=== PATIENT | female | born 1985 | race Caucasian/White ===

== ENCOUNTER 2021-06-02 14:00 | Emergency (ER) | payer MEDICAID ==
[~2021-06-02] VITALS: Ht 167.6 cm; Wt 59.0 kg
--- NOTE | 2021-06-02 14:35 | NUR ---
DR JOYA AT BEDSIDE FOR MSE.
[2021-06-02] MEDS ORDERED: IBUPROFEN 800 MG TABLET PO ONE (14:45)
[2021-06-02] MEDS ORDERED: IBUPROFEN 800 MG TABLET ONE (15:12)
[2021-06-02] MEDS ORDERED: OXYC-128 PO (15:24)
--- NOTE | 2021-06-02 15:46 | NUR ---
Patient discharged to home in stable condition. Written and verbal after care instructions given. Patient verbalizes understanding of instructions. Stressed follow up or return to ER for worsening s/s. Ambulated out of ED in steady gait.
[2021-06-02 15:51] VITALS: BP 130/80
== END 2021-06-02 15:45 | disposition home or self-care (01) ==
LOC: EDBD 14:00 → ER 14:00
DX: S20.219A Contusion of unspecified front wall of thorax, initial encounter (principal); S16.1XXA Strain of muscle, fascia and tendon at neck level, initial encounter; V43.62XA Car passenger injured in collision with other type car in traffic accident, initial encounter; Y92.9 Unspecified place or not applicable; L72.3 Sebaceous cyst
CPT/HCPCS: 70450; 72125; A4663